=== PATIENT | male | born 1990 | race African-American/Black ===

== ENCOUNTER 2017-05-20 20:54 | Emergency (ER) | payer OTHER ==
[~2017-05-20] VITALS: Ht 167.6 cm; Wt 81.6 kg
[2017-05-20 21:18] VITALS: BP 150/97
--- NOTE | 2017-05-20 22:45 | PHYS DOC ---
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 The pain is sharp mild nonradiating and without alleviating factors. Review of systems is negative for wrist pain and elbow pain or shoulder pain proximally. He denies abdominal pain or chest pain. All other review of systems is negative unless otherwise noted in history of present illness. ED course: 19-year-old gentleman presenting with right hand pain. Triage vital signs unremarkable. X-ray ordered however prior to the x-ray being obtained the patient left AGAINST MEDICAL ADVICE. Review of Systems Review of Systems SEE ABOVE. Allergies Allergies Allergies Coded Allergies Type Severity Reaction Last Updated Verified No Known Drug Allergies 05/20/17 No Physical Exam Physical Exam Constitutional: Well developed, well nourished, no acute distress, non-toxic appearance. [] HENT: Normocephalic, atraumatic, bilateral external ears normal, oropharynx moist, no oral exudates, nose normal. [] Eyes: PERRLA, EOMI, conjunctiva normal, no discharge. [] Neck: Normal range of motion, no tenderness, supple, no stridor. [] Cardiovascular:Heart rate regular rhythm, no murmur [] Lungs & Thorax: Bilateral breath sounds clear to auscultation [] Abdomen: Bowel sounds normal, soft, no tenderness, no masses, no pulsatile masses. [] Skin: Warm, dry, no erythema, no rash. [] Back: No tenderness, no CVA tenderness. [] Extremities: The patient's right hand is warm and well perfused with a palpable pulse. He has mild tenderness on the second and third phalanx without any swelling. Skin is intact. No laceration or ecchymosis present. 2 second cap refill distally. Normal motor and sensory function present of the right hand. Neurologic: Alert and oriented X 3, normal motor function, normal sensory function, no focal deficits noted. [] Psychologic: Affect normal, judgement normal, mood normal. [] Current Patient Data Vital Signs Vital Signs Date Time Temp Pulse Resp B/P (MAP) Pulse Ox O2 Delivery O2 Flow Rate FiO2 05/20/17 21:18 98.6 90 16 150/97 (114) 100 Room Air 98.6 EKG EKG [] Radiology/Procedures Radiology/Procedures [] Course & Med Decision Making Course & Med Decision Making Pertinent Labs and Imaging studies reviewed. (See chart for details) [] Dragon Disclaimer Dragon Disclaimer This electronic medical record was generated, in whole or in part, using a voice recognition dictation system. Departure Departure Impression: Primary Impression: Left against medical advice Disposition: 07 AGAINST MEDICAL ADVICE Condition: STABLE Referrals: NO PCP (PCP) COURTNEY PRATHER MD May 20, 2017 22:45
== END 2017-05-20 21:20 | disposition left against medical advice (07) ==
LOC: ER 20:54
DX: M79.641 Pain in right hand (principal)
CPT/HCPCS: 99281

== ENCOUNTER 2018-03-31 21:42 | Emergency (ER) | payer OTHER | END 2018-03-31 22:15 | disposition home or self-care (01) | LOC: ER 21:42 | DX: J02.0 Streptococcal pharyngitis (principal); F17.210 Nicotine dependence, cigarettes, uncomplicated | CPT/HCPCS: 99283 ==